=== PATIENT | female | born 1950 | race Caucasian/White ===

== ENCOUNTER 2019-04-21 15:09 | Outpatient (CLI) | payer MEDICARE, SELFPAY ==
--- NOTE | 2019-04-21 16:10 | ECG_ITS ---
Measurements Intervals Laie Rate: 56 P: 26 MI: 187 QRS: 48 QRSD: 84 T: 31 QT: 475 QTc: 462 Interpretive Statements SINUS BRADYCARDIA BASELINE ARTIFACT- I, II, III, AVR, AVL, AVF, V4-V6 BORDERLINE ECG Electronically Signed On 04-21-2019 16:55:57 [employer]ITCHEN LE[employer] by Cuauhtemoc Freeman D.O.
== END 2019-04-21 15:10 | disposition home or self-care (01) ==
PROVIDERS: Visit Provider Orthopaedic Surgery
DX: I10 Essential (primary) hypertension (principal); R94.31 Abnormal electrocardiogram [ECG] [EKG]
CPT/HCPCS: 93005

== ENCOUNTER 2019-04-24 01:11 | Day surgery (SDC) | payer MEDICARE, SELFPAY ==
[2019-04-21 16:02] VITALS: BP 145/72; PULSE 59; RESP 18; TEMP 36.6; O2SAT 98; BMI 26.6
--- NOTE | 2019-04-21 16:20 | PC.NURSE ---
INCENTIVE SPIROMETRY TEACHING DONE. GOAL 2000, PT. RESULT 2000.
[2019-04-24] VITALS (10 sets, daily range): BP systolic 100–116; BP diastolic 46–73; PULSE 52–69; RESP 11–20; TEMP 36.3–37.1; O2SAT 92–97
--- NOTE | ~2019-04-24 | XR_ITS ---
EXAMINATION: XR surgery orthopedic EXAM DATE: 04/24/2019 11:04 INDICATION: Right ankle fracture. TECHNIQUE: Fluoroscopy used during XR surgery orthopedic performed by Dr. Jalil Guzman MD. The DAP for this procedure was 0.03 mGym2. FINDINGS: Right ankle open reduction internal fixation with 2 medial malleolar screws, a fibular kristie te with supporting screws including one bridging the syndesmosis. The ankle mortise alignment appears in anatomic position. Correlate with procedure note. IMPRESSION: Fluoroscopy used during XR surgery orthopedic. Reviewed, dictated and finalized at location A.
--- NOTE | 2019-04-24 07:18 | WPDHPUPDATE1 ---
History and Physical Update Update Date/Time: 04/24/19 07:18 History and Physical has been reviewed, including an updated exam of the patient. There are NO changes in the patient's condition. Risks, benefits, and alternatives have been discussed and questions answered. Patient agrees to proceed with procedure.
[2019-04-24] MEDS: LACTATED RINGERS 1,000 ML 30 ML IV CONT ×2 (08:00→11:58)
[2019-04-24] MEDS: IBUPROFEN IV 800 MG/200 ML 800 MG/200 ML BAG 400 MG IVPB (08:00)
--- NOTE | 2019-04-24 08:46 | WPDANESEPPF ---
Anes - Initial Pre Proc Eval Procedure: Operation Date: 04/24/19 09:00 Proposed Procedures p Open Reduction Internal Fixation Right Ankle Fracture - Jalil Guzman MD Date/Time: 04/24/19 08:46 Surgeon: Jalil Guzman MD Pre Op Diagnosis: Right Ankle Fracture Patient Data Age: 69 Gender: F Height: 1.64 m Weight: 71.5 kg Last Vital Signs Temp 37.1 C 04/24/19 08:21 Pulse 52 L 04/24/19 08:21 Resp 18 04/24/19 08:21 BP 109/46 L 04/24/19 08:21 Pulse Ox 97 04/24/19 08:21 Allergies Allergy/AdvReac Type Severity Reaction Status Date / Time levofloxacin [From [facility]] AdvReac change in Verified 04/24/19 08:14 heart rate Home Medications Medication Instructions Recorded Confirmed Type albuterol sulfate 90 mcg/actuation 1 puff INHALATION Q4H PRN 04/21/19 04/24/19 History aerosol inhaler amlodipine 5 mg tablet 5 mg PO HS 04/21/19 04/24/19 History bupropion HCl 100 mg tablet,12 hr 100 mg PO DAILY 04/21/19 04/24/19 History sustained-release citalopram 10 mg tablet 30 mg PO DAILY tablet 04/21/19 04/24/19 History lamotrigine 200 mg tablet 200 mg PO DAILY 04/21/19 04/24/19 History magnesium 250 mg tablet 250 mg PO HS 04/21/19 04/24/19 History mzheikqznrtm-It-wkjg-minerals 1 tablet PO DAILY 04/21/19 04/24/19 History [Multiple Vitamin, Womens] nebivolol 5 mg tablet 5 mg PO BID tablet 04/21/19 04/24/19 History oxycodone-acetaminophen 5 mg-325 1 tablet PO Q6H PRN #30 tablet 04/21/19 04/24/19 Rx mg tablet simvastatin 20 mg tablet 20 mg PO DAILY 04/21/19 04/24/19 History vitamin E 200 unit capsule 200 unit PO DAILY 04/21/19 04/24/19 History Patient hx anesthesia problems: none Family hx anesthesia problems: none PMFSH Past Medical History Medical History (Updated 04/24/19 @ 08:46 by Christiano Bernard DO) Asthma Bimalleolar fracture of right ankle Depression Fall down stairs Fracture of metatarsal of left foot, closed Hernia x2 HTN (hypertension) Hyperlipidemia Liver cyst Ovarian cyst QT prolongation incidental finding on EKG Rectal bleeding Ribs, multiple fractures Shortness of breath on exertion Social History Social History Gender identity (if verbalized by the patient): Female Anes - Eval Final PreProcedure Day of Procedure 04/24/19 08:46 Patient weight: overweight Heart: regular rate and rhythm Lungs: clear to auscultation and normal air movement Airway: Mallampati scale class II and other (cracked front tooth, bridge in back right) Neurological: alert and oriented Last oral intake: >/= 8 hours ASA classification: III Emergent: no Anesthetic plan: proceed Anesthesia type and monitoring: general LMA and standard monitoring Informed Consent: The patient's anesthetic plan and its attendant risks and benefits were discussed with the patient/family/POA. Questions were solicited and answers provided to the satisfaction of the patient/family/POA.
[2019-04-24] MEDS: ceFAZolin 2 GM/D5W 50 ML 2 GM/50 ML BAG IVPB (09:18)
--- NOTE | 2019-04-24 12:16 | PM.PROC ---
Procedure Note - Detailed Date of procedure: 04/24/19 Pre-op diagnosis: Right Ankle Fracture Post-op diagnosis: same (Right ankle bimalleolar fracture) Procedure performed: Open reduction internal fixation right ankle bimalleolar fracture Description of procedure: Operative indications: Patient is a 69 year-old -woman who sustained an injury to the right ankle. Radiographs show distal fibular fracture with displacement, widening of the ankle mortise noted consistent with medial injury and instability, medial malleolus fracture. Patient presents for operative treatment. Full discussion of the risks, benefits and alternatives of surgery was had with the patient. Questions answered. Patient verbalizes understanding and wishes to proceed. What was done: After informed consent, the operative extremity was marked in the preoperative holding area. Patient received intravenous antibiotics. Patient was then taken to the operating room and underwent general anesthesia by the anesthesia team. They were positioned supine on the operating room table. A time-out was performed confirming the patient, site of the surgery, operative plan. Lower extremity then prepped and draped in the usual sterile surgical fashion using ChloraPrep skin solution. Foot and ankle exsanguinated and a thigh tourniquet inflated to 250 mmHg. Longitudinal incision made over the lateral ankle distal fibula with a 15 blade knife. Hemostasis controlled with electrocautery. Full-thickness soft tissue flaps developed with the fascia which was incised in line with the skin incision. Fracture identified and cleared with a dental pick, irrigation and rongeur. Noted to be extensive soft tissue stripping from the fibula as well as the anterior and posterior portions of the visualized ankle joint. The lateral malleolus was then addressed. Fracture reduced and held with bone-holding clamp. Image intensification confirmed reduction of the fracture and the ankle mortise. Fixation achieved with Neutralization type fixation with a lateral plate with unicortical screws distal to fracture and bicortical screws proximal to the fracture. Plate is manufactured with the distal end shaped into a hook. This was placed into the distal lateral malleolus for extra fixation. One of the 3.5 mm screws was placed across the syndesmosis into the tibia for added fixation with osteoporotic bone. Good alignment and stability of the fracture noted. Image intensification used to confirm reduction of the fracture and placement of the hardware. Wound thoroughly irrigated with antibiotic solution. Fascia closed with 2 0 Vicryl interrupted suture. Subcutaneous tissue closed with 3 0 Monocryl interrupted suture and skin repaired with 4 O nylon interrupted suture. Medial malleolus fracture then addressed. Medial longitudinal incision made with a 15 blade knife over the fracture. Hemostasis controlled electrocautery. Full-thickness soft tissue flaps developed anteriorly and posteriorly. Fracture cleared of debris with rongeur and a dental pick. Visualized portion of the ankle joint irrigated and suction. Fracture then reduced and provisionally pinned. Reduction checked with image intensification. Fixation then achieved with 4.0 mm partially threaded cancellous screws, cannulated. Two guide pins placed which were verified, measured and appropriate size screws placed over these. Good fixation of the fracture noted. Image intensification then confirmed alignment of both medial and lateral fracture and the ankle mortise. Stress of the ankle performed with good stability of the ankle mortise in all directions. Wound thoroughly irrigated with antibiotic solution. Tourniquet released and bleeding points coagulated. Fascia repaired with 00 Vicryl interrupted suture. Subcutaneous tissue repaired with 000 Monocryl interrupted suture and 0000 nylon interrupted suture. Sterile dressings applied. Padded splint then applied. Good capillary refil
== END 2019-04-24 14:05 | disposition home or self-care (01) ==
PROVIDERS: Visit Provider Orthopaedic Surgery
PROC: (CPT 27814; principal; 2019-04-24 09:00)
DX: S82.841A Displaced bimalleolar fracture of right lower leg, initial encounter for closed fracture (principal); W10.9XXA Fall (on) (from) unspecified stairs and steps, initial encounter; J45.909 Unspecified asthma, uncomplicated; I10 Essential (primary) hypertension; F32.9 Major depressive disorder, single episode, unspecified; E78.5 Hyperlipidemia, unspecified
CPT/HCPCS: 27814; A9270; C1713; C1769; J0131; J0690; J1100; J1170; J1741; J2250; J2370; J2405; J2704; J3010; J7120